=== PATIENT | male | born 1945 | race Caucasian/White ===

== ENCOUNTER 2017-10-22 09:49 | Emergency (ER) | payer MEDICARE ==
[~2017-10-22] VITALS: Ht 182.9 cm; Wt 99.8 kg
[~2017-10-22 09:49] MED LIST: AMITRIPTYLINE H25 M2 PO; ASPIRIN325 PO; AZITHROMYCIN 2250 MG PO; CALCIUM 600 +1 EAC9 PO; CEFDINIR PO; CIPROFLOXACIN500 M1; CIPROFLOXACIN500 M1 PO; CIPROFLOXACIN500 M3 PO; CLONAZEPAM 1 MG1 M1 PO; FISH OIL 1,001000 M1 PO; FLAXSEED OIL1000 MG PO; GLUCOSAMINE S1000 M2 PO; IBUPROFEN 800800 M1 PO; LYRICA225 MG PO; LYRICA25 PO; MILK THISTLE500 MG PO; MS CONTIN 100100 MG PO; NICOTINE TRANSD21 M1 TD; PROVENTIL IN; STOOL SOFTENER50 MG PO; VEGGIE VITAMIN; VITCB500GO PO; [UNRECOGNIZED DRUG - OTHER]; [UNRECOGNIZED DRUG - OTHER]; [UNRECOGNIZED DRUG - OTHER] PO
[2017-10-22] MEDS ORDERED: PAXIL10 MG PO (10:02)
[2017-10-22] MEDS ORDERED: ATORVASTATIN CA40 MG PO (10:03)
[2017-10-22] MEDS ORDERED: MULTI VITAMIN1 EACH PO (10:03)
[2017-10-22] MEDS ORDERED: SEROQUEL 25 MG25 M1 PO (10:05)
[2017-10-22] MEDS ORDERED: OXYCODONE HCL E15 MG PO (10:06)
[2017-10-22 10:31] LABS: HEMOGLOBIN 15.8 gm/dL (14.0-18.0); MCH 32.7 pg (26.0-34.0); MCHC 34.3 g/dL (28.0-37.0); MCV 95.5 fL (80.0-100.0); MPV 7.8 fl. (7.2-11.1); RBC 4.82 mil/uL (4.50-6.00); RDW-CV 13.3 % (10.5-14.5); WBC 8.4 thou/uL (4.0-11.0)
[2017-10-22 11:15] LABS: APTT 27.4 Seconds (25.0-31.3); INR 1.1; PROTIME 10.6 Seconds (9.20-11.50)
[2017-10-22 11:19] LABS: ALBUMIN 3.3 g/dL (3.4-5.0); CALCIUM 8.5 mg/dL (8.5-10.1); CREATININE 0.9 mg/dL (0.6-1.3); POTASSIUM 4.2 mmol/L (3.5-5.1); TOTAL BILIRUBIN 0.4 mg/dL (<0.1-1.0)
[2017-10-22 13:43] VITALS: BP 109/64
== END 2017-10-22 13:44 | disposition home or self-care (01) ==
LOC: M.ERS 09:49
PROVIDERS: Personal Emergency Response Attendant
DX: R51 Headache (principal); J34.89 Other specified disorders of nose and nasal sinuses; G47.30 Sleep apnea, unspecified; F17.210 Nicotine dependence, cigarettes, uncomplicated

== ENCOUNTER → 2018-03-18 | Outpatient (CLI) | payer MEDICARE ==
[~2018-03-18] MED LIST changes: +ATORVASTATIN CA40 MG PO; +MULTI VITAMIN1 EACH PO; +OXYCODONE HCL E15 MG PO; +PAXIL10 MG PO; +SEROQUEL 25 MG25 M1 PO
== END ==
LOC: M.ULTRA 10:17
DX: N28.89 Other specified disorders of kidney and ureter (principal)